=== PATIENT | male | born 1935 ===

== ENCOUNTER 2018-10-07 07:36 | Outpatient (CLI) | payer MEDICARE | END 2018-10-07 07:37 | disposition home or self-care (01) | LOC: C.LAB 07:36 | DX: E11.9 Type 2 diabetes mellitus without complications (principal); E78.2 Mixed hyperlipidemia; R79.9 Abnormal finding of blood chemistry, unspecified ==

== ENCOUNTER 2018-12-30 07:34 | Outpatient (CLI) | payer MEDICARE | END 2018-12-30 07:35 | disposition home or self-care (01) | LOC: C.LAB 07:34 | DX: E78.2 Mixed hyperlipidemia (principal); E11.9 Type 2 diabetes mellitus without complications; I10 Essential (primary) hypertension ==